=== PATIENT | female | born 1990 | race African-American/Black ===

== ENCOUNTER 2025-03-08 19:29 | Emergency (ER) | payer MEDICAID ==
[~2025-03-08] VITALS: Ht 172.7 cm; Wt 82.0 kg
[2025-03-08 19:31] VITALS: BP 154/83; TEMP 36.9; O2SAT 98
[2025-03-08 19:40] VITALS: PULSE 64; RESP 14; O2SAT 98
[2025-03-08 21:42] LABS: BASOPHILS % 0.4 % (0.0-2.0); DIFFERENTIAL COMMENT 0; EOSINOPHILS % 1.3 % (0.0-5.0); HEMATOCRIT. 36.3 % (36.0-48.0); HEMOGLOBIN. 11.3 g/dL (12.0-16.0); LYMPHOCYTES % 30.6 % (20.0-50.0); MEAN CORPUSCULAR HGB CONC 31.2 g/dL (31.0-37.0); MEAN CORPUSCULAR VOLUME 70.3 fL (81.0-99.0); MONOCYTES % 6.5 % (2.0-8.0); NEUTROPHILS % 61.2 % (40.0-76.0); PLATELET 318 x1000/uL (130-400); RED BLOOD CELL COUNT 5.16 mill/uL (4.2-5.4); RED CELL DISTRIBUTION WIDTH 14.4 % (11.6-14.6); WHITE BLOOD COUNT 6.7 x1000/uL (4.5-11.0)
[2025-03-08 21:50] LABS: CHLORIDE 105 mEq/L (98-107); POTASSIUM 4.2 mEq/L (3.5-5.1); SODIUM 142 mEq/L (136-145)
[2025-03-08 21:51] LABS: CARBON DIOXIDE 27 mEq/L (21-32)
[2025-03-08 21:52] LABS: CALCIUM 9.7 mg/dL (8.7-10.4)
[2025-03-08 21:56] LABS: CREATININE 0.7 mg/dL (0.6-1.0); GLUCOSE 120 mg/dL (70-105)
[2025-03-08 21:57] LABS: UREA NITROGEN BLOOD 7 mg/dL (9-23)
[2025-03-08 21:58] LABS: ALANINE AMINOTRANSFERASE 9 IU/L (10-49); ALBUMIN 4.4 g/dL (3.2-4.8); ASPARTATE AMINOTRANSFERASE 16 IU/L (<34)
[2025-03-08 21:59] LABS: BILIRUBIN TOTAL 0.4 mg/dL (0.1-1.0)
[2025-03-08] MEDS: KETOROLAC 30MG/ML VIAL IM STA (22:14)
[2025-03-08 23:02] LABS: CLARITY URINE CLEAR (CLEAR); COLOR URINE YELLOW (YELLOW); GLUCOSE URINE NEGATIVE (NEGATIVE); KETONES URINE NEGATIVE (NEGATIVE); LEUKOCYTE ESTERASE URINE 2+ (NEGATIVE); NITRITE URINE NEGATIVE (NEGATIVE); OCCULT BLOOD URINE NEGATIVE (NEGATIVE); PH URINE 7.5 (4.5-8.0); PROTEIN URINE NEGATIVE (NEGATIVE); SPECIFIC GRAVITY URINE 1.017 (1.005-1.030); UROBILINOGEN URINE 0.2 E.U./dL (0.2-1.0)
[2025-03-08 23:16] LABS: BACTERIA URINE 2+; RBC URINE 0-2 /hpf (0-2); SQUAMOUS EPITHELIAL CELL URINE 1+ /lpf (RARE/1+)
[2025-03-08] MEDS ORDERED: IBUP-2029 MT (23:49)
[2025-03-08] MEDS ORDERED: NITR-87 MT (23:49)
== END 2025-03-09 00:50 | disposition home or self-care (01) ==
LOC: ER 19:29
DX: N39.0 Urinary tract infection, site not specified (principal); R10.11 Right upper quadrant pain; Z79.899 Other long term (current) drug therapy
CPT/HCPCS: 80053; 81003; 81025; 83690; 85025; 36415; 76705; 96372; 99285; J1885; Z7610

== ENCOUNTER 2025-04-09 08:50 | Emergency (ER) | payer MEDICAID ==
[~2025-04-09] VITALS: Ht 172.7 cm; Wt 73.0 kg
[~2025-04-09 08:50] MED LIST: IBUP-2029 MT; NITR-87 MT
[2025-04-09 09:09] VITALS: O2SAT 100
[2025-04-09 09:58] LABS: CLARITY URINE CLEAR (CLEAR); COLOR URINE YELLOW (YELLOW); GLUCOSE URINE NEGATIVE (NEGATIVE); KETONES URINE NEGATIVE (NEGATIVE); LEUKOCYTE ESTERASE URINE NEGATIVE (NEGATIVE); NITRITE URINE NEGATIVE (NEGATIVE); OCCULT BLOOD URINE NEGATIVE (NEGATIVE); PH URINE 6.5 (4.5-8.0); PROTEIN URINE NEGATIVE (NEGATIVE); SPECIFIC GRAVITY URINE 1.011 (1.005-1.030); UROBILINOGEN URINE 0.2 E.U./dL (0.2-1.0)
[2025-04-09 10:06] LABS: BASOPHILS % 0.7 % (0.0-2.0); EOSINOPHILS % 1.1 % (0.0-5.0); HEMATOCRIT. 38.3 % (36.0-48.0); HEMOGLOBIN. 12.0 g/dL (12.0-16.0); LYMPHOCYTES % 30.6 % (20.0-50.0); MEAN PLATELET VOLUME 8.9 fl (7.4-10.4); MONOCYTES % 7.5 % (2.0-8.0); NEUTROPHILS % 60.1 % (40.0-76.0); PLATELET 311 x1000/uL (130-400); RED BLOOD CELL COUNT 5.41 mill/uL (4.2-5.4); RED CELL DISTRIBUTION WIDTH 13.7 % (11.6-14.6)
[2025-04-09 10:20] LABS: CREATININE 0.7 mg/dL (0.6-1.0)
[2025-04-09 10:21] LABS: UREA NITROGEN BLOOD 7 mg/dL (9-23)
[2025-04-09 10:22] LABS: ASPARTATE AMINOTRANSFERASE 19 IU/L (<34)
[2025-04-09 10:23] LABS: BILIRUBIN DIRECT 0.1 mg/dL (<=3.0); BILIRUBIN TOTAL 0.6 mg/dL (0.1-1.0); PROTEIN TOTAL 7.5 g/dL (6.0-8.3)
[2025-04-09 14:57] VITALS: BP 140/82; PULSE 99; RESP 16; TEMP 36.7; O2SAT 100
== END 2025-04-09 14:58 | disposition home or self-care (01) ==
LOC: ER 09:07
DX: R10.2 Pelvic and perineal pain (principal); Z79.899 Other long term (current) drug therapy
CPT/HCPCS: 36415; 76830; 76856; 80048; 80076; 81003; 81025; 84702; 85025; 99284